=== PATIENT | male | born 1980 | race Hispanic/Latino ===

== ENCOUNTER 2019-02-07 22:30 | Observation (INO) | payer OTHER ==
[2019-02-07] MEDS ORDERED: Sodium Chloride 0.9% 1,000 ML IV STA (22:55)
[2019-02-07] MEDS ORDERED: Morphine 4 MG/ML VIAL IVP STA (22:55)
[2019-02-07] MEDS ORDERED: Morphine 4 MG/ML VIAL ONE (23:08)
--- NOTE | 2019-02-07 23:11 | ED PDOC ---
HPI: Abdomen Time Seen by Provider: 02/07/19 22:45 Chief Complaint (Nursing): Abdominal Pain Chief Complaint (Provider): Abdominal Pain History Per: Patient History/Exam Limitations: no limitations Onset/Duration Of Symptoms: Hrs (x4) Severity: Severe Location Of Pain/Discomfort: Other (upper abdomen) Associated Symptoms: Nausea. denies: Vomiting, Diarrhea, Constipation, Urinary Symptoms Additional Complaint(s): 38 years old male presents to ER for evaluation of severe upper abdominal pain associated with nausea that started around 7 pm. Patient reports pain has been worsening, waxing and waning since onset. He reports mild improvement when he had dinner but then pain came back. Patient states pain radiates to his back. He reports his last bowel movement was this morning normal with no blood or black stools. Patient admits he has been having intermittent abdominal pain for a long time, only in the last couple of months it became severe. He reports he saw a GI last week and is scheduled for endoscopy tomorrow. Patient denies vomiting, diarrhea and constipation. PMD: [facility] GI: Dr. Neptali Sparrow [facility] Past Medical History Reviewed: Historical Data, Nursing Documentation, Vital Signs Vital Signs: Last Vital Signs Temp 96 F L 02/07/19 22:33 Pulse 85 02/07/19 22:33 Resp 16 02/07/19 22:33 BP 122/80 02/07/19 22:33 Pulse Ox 98 02/07/19 22:33 - Medical History PMH: No Chronic Diseases - Surgical History Surgical History: No Surg Hx - Family History Family History: States: Diabetes - Social History Current smoker - smoking cessation education provided: No Alcohol: None Drugs: Denies - Home Medications Home Medications: Ambulatory Orders Medication Instructions Recorded No Known Home Med 02/08/19 - Allergies Allergies/Adverse Reactions: Allergies Allergy/AdvReac Type Severity Reaction Status Date / Time beet Allergy RASH Verified 02/07/19 22:39 Penicillins Allergy RASH Verified 02/07/19 22:35 lactose AdvReac DIARRHEA Verified 02/07/19 22:39 Review of Systems ROS Statement: Except As Marked, All Systems Reviewed And Found Negative Gastrointestinal: Positive for: Nausea, Abdominal Pain (upper). Negative for: Vomiting, Diarrhea, Constipation, Melena, Hematochezia Physical Exam - Reviewed Nursing Documentation Reviewed: Yes Vital Signs Reviewed: Yes - Physical Exam Appears: Positive for: Uncomfortable, In Acute Distress (painful) Head Exam: Positive for: ATRAUMATIC, NORMOCEPHALIC Skin: Positive for: Warm, Dry Eye Exam: Positive for: EOMI, PERRL ENT: Negative for: Pharyngeal Erythema, Tonsillar Exudate Neck: Positive for: Painless ROM, Supple Cardiovascular/Chest: Positive for: Regular Rate, Rhythm. Negative for: Murmur Respiratory: Positive for: Normal Breath Sounds. Negative for: Respiratory Distress Gastrointestinal/Abdominal: Positive for: Tenderness (to palpation to bilateral upper quadrants and epigastric area, more severe in RUQ), Distended (mild), Guarding (voluntary). Negative for: Other (McBurney's point) Back: Positive for: Normal Inspection. Negative for: Decreased ROM Extremity: Positive for: Normal ROM. Negative for: Deformity Lymphatic: Negative for: Adenopathy Neurological/Psych: Positive for: Awake, Alert, Oriented (x3) - Laboratory Results Result Diagrams: 02/07/19 23:10 02/07/19 23:10 - ECG O2 Sat by Pulse Oximetry: 98 (RA) Pulse Ox Interpretation: Normal Medical Decision Making Medical Decision Making: Time:2253 Initial Impression: Upper abdominal pain. Differential includes but not limited to gallbladder disease, pancreatitis, gastritis and PUD. Initial Plan: --CMP --Lactic acid --Lipase --CBC --Morphine 4 mg IVP --Pepcid 20 mg IVP --Zofran 4 mg IVP --Gallbladder & Hepatic US 12am Pt's pain improved slightly post morphine, still have some discomfort. Reviewed preliminary read by produce team member that indicates study was difficult due to bowel gas. Ordered CT abd/pelv with PO/IV contrast anticipating inconclusive ultrasound result. Endorsed to Dr Perdue pending CT, reassessment and final ER disposition. Scribe Attestation: Documented by Kaylene Munoz, acting as a scribe for Laura Hilario MD. Provider Scribe Attestation: All medical record entries made by the Scribe were at my direction and personally dictated by me. I have reviewed the chart and agree that the record accurately reflects my personal performance of the history, physical exam, medical decision making, and the department course for this patient. I have also personally directed, reviewed, and agree with the discharge instructions and disposition. Disposition - Clinical Impression Clinical Impression: Abdominal pain - Disposition Disposition: Transfer of Care Disposition Time: 00:00 Condition: FAIR
[2019-02-07 23:30] LABS: BASO # 0.1 K/uL (0.0-0.2); BASO % 0.8 % (0.0-2.0); EOS # 0.1 K/uL (0.0-0.7); EOS % 0.8 % (0.0-4.0); HEMOGLOBIN 17.1 g/dL (12.0-18.0); LYMPH # 2.1 K/uL (1.0-4.3); LYMPH % 18.4 % (20.0-40.0); MEAN CELL VOLUME 87.5 fl (80.0-94.0); MEAN CORPUSCULAR HEMOGLOBIN 30.3 pg (27.0-31.0); MEAN CORPUSCULAR HGB CONC 34.6 g/dL (33.0-37.0); MEAN PLATELET VOLUME 8.1 fl (7.2-11.7); MONO # 0.7 K/uL (0.0-0.8); MONO % 6.4 % (0.0-10.0); NEUT # 8.2 K/uL (1.8-7.0); NEUT % 73.6 % (50.0-75.0); NRBC % 0.1 % (0.0-0.0); RBC 5.64 Mil/uL (4.40-5.90); RED CELL DISTRIBUTION WIDTH 13.3 % (11.5-14.5); WHITE BLOOD COUNT 11.2 K/uL (4.8-10.8)
[2019-02-07 23:40] LABS: ALBUMIN 4.7 g/dL (3.5-5.0); BLOOD UREA NITROGEN 16 mg/dl (9-20); CALCIUM 9.9 mg/dL (8.4-10.2); GFR NON-AFRICAN AMERICAN > 60
[2019-02-07 23:41] LABS: ALB/GLOB RATIO 1.4 (1.0-2.1); ALT/SGPT 58 U/L (21-72); AST/SGOT 28 U/L (17-59); LIPASE 46 U/L (23-300)
[2019-02-08] MEDS ORDERED: Iohexol 240 (50 ml) PO STA (00:06)
--- NOTE | 2019-02-08 00:16 | ED PDOC ---
- Laboratory Results Result Diagrams: 02/07/19 23:10 02/07/19 23:10 Lab Results: Total Bilirubin 0.8 mg/dl (0.2-1.3) 02/07/19 23:10 AST 28 U/L (17-59) 02/07/19 23:10 ALT 58 U/L (21-72) 02/07/19 23:10 Alkaline Phosphatase 63 U/L (38-126) 02/07/19 23:10 Total Protein 8.1 G/DL (6.3-8.2) 02/07/19 23:10 Albumin 4.7 g/dL (3.5-5.0) 02/07/19 23:10 Globulin 3.4 gm/dL (2.2-3.9) 02/07/19 23:10 Albumin/Globulin Ratio 1.4 (1.0-2.1) 02/07/19 23:10 Lipase 46 U/L (23-300) 02/07/19 23:10 - ECG O2 Sat by Pulse Oximetry: 98 (RA) Pulse Ox Interpretation: Normal Medical Decision Making Medical Decision Making: Time: 0000 Patient transferred to [place] by Dr. Hilario, pending gallbladder US. 0122 Gallbladder and Hepatic US Findings: Unremarkable liver measuring 16.3 cm. Nondilated common bile duct measuring 4.1 mm. Normal gallbladder. Normal gallbladder wall thickness measuring 2.2 mm. Nondilated common bile duct measuring 4.9 mm. Nonvisualization of the pancreas secondary to gaseous bowel distention. Unremarkable IVC. Nonaneurysmal aorta. Unremarkable right kidney. Impression: Gaseous bowel distention. No evidence of cholelithiasis or acute cholecystitis. 0407 Abdomen/Pelvis CT Findings: COMMENTS: Partial small bowel obstruction. Transition zone in the left lower quadrant without bowel perforation or pneumatosis intestinalis. The liver is of uniform attenuation without mass or defect. There is no intra or extrahepatic biliary ductal dilatation. The spleen is normal. The gallbladder is within normal limits. The pancreas is of normal contour and attenuation characteristics. There is no evidence of adrenal mass. Both kidneys demonstrate prompt and equal nephrograms. The kidneys are normal in size, shape and configuration. There is no evidence of renal or ureteral mass. No renal or ureteral calculi are identified. There is no hydroureter or hydronephrosis. No evidence for appendicitis. There is no evidence of abdominal ascites or lymphadenopathy. There is no evidence of intrinsic or extrinsic bladder mass. There is no pelvic ascites or lymphadenopathy. Images of the lung bases show no evidence of pleural or parenchymal mass. There are no pleural effusions. The bony structures are free of lytic or blastic lesions. IMPRESSION: Partial small bowel obstruction. Transition zone in the left lower quadrant without bowel perforation or pneumatosis intestinalis. 0500 Patient reports he's feeling somewhat improved after toradol Consulted surgery resident Dr. Tien Jackson who came and evaluated patient 0600 NGT [address] by surgery Dr. Bird to consult on patient 0700 Dr. Buckner aware of patient Scribe Attestation: Documented by Kaylene Munoz, acting as a scribe for Miguel Angel Perdue MD. Provider Scribe Attestation: All medical record entries made by the Scribe were at my direction and perso kaelyn dictated by me. I have reviewed the chart and agree that the record accurately reflects my personal performance of the history, physical exam, medical decision making, and the department course for this patient. I have also personally directed, reviewed, and agree with the discharge instructions and disposition. Disposition Discussed With : Yonathan Buckner Doctor Will See Patient In The: Hospital Counseled Patient/Family Regarding: Studies Performed, Diagnosis - Clinical Impression Clinical Impression: Abdominal pain - POA Present On Arrival: None - Disposition Disposition: Hospitalized as Observation Patient Disposition Time: 07:00 Condition: FAIR
[2019-02-08] MEDS ORDERED: Iohexol 240 (50 ml) ONE (00:45)
[2019-02-08] MEDS ORDERED: Sodium Chloride 0.9% 50 ML IV ONE (02:46)
[2019-02-08] MEDS ORDERED: Iohexol 300 100 ML IJ ONE (02:46)
--- NOTE | 2019-02-08 04:57 | CP.PCM.CON ---
<Tien Shore - Last Filed: 02/08/19 10:33> History of Present Illness - History of Present Illness History of Present Illness: General Surgery Consult Note for Dr. Bird Reason for consult: SBO 38 M who denies any significant PMH presents to [facility] for complaint of abdominal pain. Patient seen and evaluated in the ED. Patient states that pain began yesterday afternoon when he was flying back to [place]. 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 He reports that the pain came on suddenly and had gotten progressively worse. He states pain is severe and describes it as constant cramping in epigastrium. He reports nausea but denies vomiting. He also denies any fever/chills. He states that his last BM was yesterday morning and it was normal. He was passing flatus as well but then stopped around when pain began. Patient had an endoscopy scheduled for today with his Penal Officer at [facility]. He also shared that he has been having "stomach issue" for the last two years. He intially saw GI in [place] two years ago for pain and diarrhea. At that time, he was given PPI and pain resolved. It came back recently and has been following up at [facility]. Admits to recent travel due to his job. Denies recent illness, sick contacts, cp, SOB, diarrhea, urinary symptoms, hematochezia, melena, incontinence. PMH: denies PSH: denies ALL: PCN Review of Systems - Review of Systems All systems: reviewed and no additional remarkable complaints except (as per HPI) Past Patient History - Past Social History Smoking Status: Former Smoker - RENAL Hx Kidney Stones: Yes - PSYCHIATRIC Hx Substance Use: No - SURGICAL HISTORY Hx Surgeries: No Meds Allergies/Adverse Reactions: Allergies Allergy/AdvReac Type Severity Reaction Status Date / Time beet Allergy RASH Verified 02/07/19 22:39 Penicillins Allergy RASH Verified 02/07/19 22:35 lactose AdvReac DIARRHEA Verified 02/07/19 22:39 Physical Exam - Constitutional Appears: Non-toxic, No Acute Distress - Head Exam Head Exam: ATRAUMATIC, NORMOCEPHALIC - Eye Exam Eye Exam: EOMI, Normal appearance Pupil Exam: PERRL - ENT Exam ENT Exam: Mucous Membranes Moist - Neck Exam Neck exam: Positive for: Full Rom - Respiratory Exam Respiratory Exam: NORMAL BREATHING PATTERN - Cardiovascular Exam Cardiovascular Exam: REGULAR RHYTHM - GI/Abdominal Exam GI & Abdominal Exam: Distended (mild), Hypoactive Bowel Sounds, Soft, Tenderness (epigastrium). absent: Firm, Guarding, Hernia, Rebound, Rigid - Rectal Exam Rectal Exam: Deferred (adamantly refused) - Extremities Exam Extremities exam: Negative for: calf tenderness, normal capillary refill, pedal pulses present - Back Exam Back exam: absent: CVA tenderness (L), CVA tenderness (R) - Neurological Exam Neurological exam: Alert, CN II-XII Intact, Oriented x3 - Psychiatric Exam Psychiatric exam: Normal Affect, Normal Mood - Skin Skin Exam: Dry, Intact, Normal Color, Warm Results - Vital Signs Recent Vital Signs: Last Vital Signs Temp 96 F L 02/07/19 22:33 Pulse 85 02/07/19 22:33 Resp 16 02/07/19 22:33 BP 122/80 02/07/19 22:33 Pulse Ox 98 02/08/19 04:11 - Labs Result Diagrams: 02/07/19 23:10 02/07/19 23:10 Labs: Laboratory Results - last 24 hr 02/07/19 02/07/19 02/07/19 23:10 23:10 23:10 WBC 11.2 H RBC 5.64 Hgb 17.1 Hct 49.3 MCV 87.5 MCH 30.3 MCHC 34.6 RDW 13.3 Plt Count 323 MPV 8.1 Neut % (Auto) 73.6 Lymph % (Auto) 18.4 L [place] % (Auto) 6.4 Eos % (Auto) 0.8 Baso % (Auto) 0.8 Neut # (Auto) 8.2 H Lymph # (Auto) 2.1 [place] # (Auto) 0.7 Eos # (Auto) 0.1 Baso # (Auto) 0.1 Sodium 137 Potassium 4.0 Chloride 99 Carbon Dioxide 27 Anion Gap 15 BUN 16 Creatinine 0.8 Est GFR ( Amer) > 60 Est GFR (Non-Af Amer) > 60 Random Glucose 104 Lactic Acid 0.9 Calcium 9.9 Total Bilirubin 0.8 AST 28 ALT 58 Alkaline Phosphatase 63 Total Protein 8.1 Albumin 4.7 Globulin 3.4 Albumin/Globulin Ratio 1.4 Lipase 46 Assessment & Plan - Assessment and Plan (Free Text) Assessment: 38 M who presents with abdominal pain found to have SBO on CT abdomen/pelvis Plan: -NPO -NGT low intermittent suction -May have sip/chips, hard candy, and gum -Strict I's & O's -Pain control -Anti-emetics PRN -Protonix -Monitor for bowel function -Serial abd exams -Discussed with Dr. Bird/Dr. John Shore PGY2 - Date & Time Date: 02/08/19 Time: 04:33 <Sterling Lopez - Last Filed: 02/08/19 12:27> Meds - Medications Medications: Current Medications Lactated Ringer's (Lactated Ringer's) 1,000 mls @ 150 mls/hr IV .Q6H40M [facility] Last Admin: 02/08/19 06:32 Dose: 150 mls/hr Ketorolac Tromethamine (Toradol) 30 mg IVP Q6 PRN PRN Reason: Pain, moderate (4-7) Last Admin: 02/08/19 11:34 Dose: 30 mg Ondansetron HCl (Zofran Inj) 4 mg IVP Q6 PRN PRN Reason: Nausea/Vomiting Pantoprazole Sodium (Protonix Inj) 40 mg IVP DAILY [facility] Last Admin: 02/08/19 06:37 Dose: 40 mg Results - Vital Signs Recent Vital Signs: Last Vital Signs Temp 97.2 F L 02/08/19 10:58 Pulse 70 02/08/19 10:58 Resp 18 02/08/19 10:58 BP 114/72 02/08/19 10:58 Pulse Ox 95 02/08/19 10:58 - Labs Result Diagrams: 02/07/19 23:10 02/07/19 23:10 Labs: Laboratory Results - last 24 hr 02/07/19 02/07/19 02/07/19 23:10 23:10 23:10 WBC 11.2 H RBC 5.64 Hgb 17.1 Hct 49.3 MCV 87.5 MCH 30.3 MCHC 34.6 RDW 13.3 Plt Count 323 MPV 8.1 Neut % (Auto) 73.6 Lymph % (Auto) 18.4 L [place] % (Auto) 6.4 Eos % (Auto) 0.8 Baso % (Auto) 0.8 Neut # (Auto) 8.2 H Lymph # (Auto) 2.1 [place] # (Auto) 0.7 Eos # (Auto) 0.1 Baso # (Auto) 0.1 Sodium 137 Potassium 4.0 Chloride 99 Carbon Dioxide 27 Anion Gap 15 BUN 16 Creatinine 0.8 Est GFR ( Amer) > 60 Est GFR (Non-Af Amer) > 60 Random Glucose 104 Lactic Acid 0.9 Calcium 9.9 Total Bilirubin 0.8 AST 28 ALT 58 Alkaline Phosphatase 63 Total Protein 8.1 Albumin 4.7 Globulin 3.4 Albumin/Globulin Ratio 1.4 Lipase 46 Urine Color Urine Clarity Urine pH Ur Specific [place] Urine Protein Urine Glucose (UA) Urine Ketones Urine Blood Urine Nitrate Urine Bilirubin Urine Urobilinogen Ur Leukocyte Esterase Urine RBC (Auto) Urine Microscopic WBC 02/08/19 05:00 WBC RBC Hgb Hct MCV MCH MCHC RDW Plt Count MPV Neut % (Auto) Lymph % (Auto) [place] % (Auto) Eos % (Auto) Baso % (Auto) Neut # (Auto) Lymph # (Auto) [place] # (Auto) Eos # (Auto) Baso # (Auto) Sodium Potassium Chloride Carbon Dioxide Anion Gap BUN Creatinine Est GFR ( Amer) Est GFR (Non-Af Amer) Random Glucose Lactic Acid Calcium Total Bilirubin AST ALT Alkaline Phosphatase Total Protein Albumin Globulin Albumin/Globulin Ratio Lipase Urine Color Yellow Urine Clarity Clear Urine pH 6.0 Ur Specific [place] > 1.020 Urine Protein Negative Urine Glucose (UA) Neg Urine Ketones Negative Urine Blood Negative Urine Nitrate Negative Urine Bilirubin Negative Urine Urobilinogen 2.0 Ur Leukocyte Esterase Neg Urine RBC (Auto) 4 H Urine Microscopic WBC 1 Assessment & Plan - Assessment and Plan (Free Text) Plan: 38yo M presents with one day history of worsening abominal pain with nausea or vomiting. Pt report chronic abdominal discomfort for which he was scheduled to have EGD on 02/08. Pt seen in ED states pain has improved and has started to pass flatus. gen: awake, alert, NAD, HEENT: NC/AT, EOMI, PERRLA, NGT in place no acute respiratory distress abd: soft, tenderness to mid abdomen on moderate palpation, no peritoneal signs, no hernias or mass, no previous scars rectal exam: pt refused 38yo M with abdominal pain, CT showing SBO with collapsed small bowel -pts abdomen is clinically benign -recommend NGT -IVF -serial abdominal exams -will repeat AXR to follow transit of contrast -no acute intervention but will continue to monitor clinically
[2019-02-08 06:28] LABS: URINE BILIRUBIN NEGATIVE (NEGATIVE); URINE BLOOD NEGATIVE (NEGATIVE); URINE CLARITY CLEAR (Clear); URINE COLOR YELLOW (YELLOW); URINE GLUCOSE (UA) NEG (NEGATIVE); URINE LEUKOCYTE ESTERASE NEG Leu/uL (Negative); URINE PROTEIN NEGATIVE (NEGATIVE)
[2019-02-08] MEDS: Lactated Ringer's 1,000 ML IV SCH ×2 (06:32→22:39)
--- NOTE | 2019-02-08 10:24 | CT ---
Date of service: 02/08/2019 PROCEDURE: CT Abdomen and Pelvis with contrast HISTORY: severe abdominal pain COMPARISON: None. TECHNIQUE: Contrast dose: Radiation dose: Total exam DLP = 832.6 mGy-cm. This CT exam was performed using one or more of the following dose reduction techniques: Automated exposure control, adjustment of the mA and/or kV according to patient size, and/or use of iterative reconstruction technique. FINDINGS: LOWER THORAX: Unremarkable. LIVER: Unremarkable. No gross lesion or ductal dilatation. GALLBLADDER AND BILE DUCTS: Unremarkable. PANCREAS: Unremarkable. No gross lesion or ductal dilatation. SPLEEN: Unremarkable. ADRENALS: Unremarkable. No mass. KIDNEYS AND URETERS: Unremarkable. No hydronephrosis. No solid mass. VASCULATURE: Unremarkable. No aortic aneurysm. No aortic atherosclerotic calcification or mural plaque present. BOWEL: The stomach is distended with retained food and oral contrast material and a bit of gas. Proximal small bowel is distended up to 3.7 cm greatest transverse dimension there is no ascites or mesenteric edema associated. Distal small bowel is completely collapsed. There appears to be a transition point at the medial left flank where small bowel transition from distended to partially collapsed diameter. Fecalization of distended small bowel loop approaching this transition point is identified this may reflect internal hernia but the etiology of obstruction is otherwise unclear. Moderate amount retained fecal material scattered throughout the large bowel with distal large bowel collapse evident. APPENDIX: Normal appendix. PERITONEUM: Unremarkable. No free fluid. No free air. LYMPH NODES: Unremarkable. No enlarged lymph nodes. BLADDER: Unremarkable. REPRODUCTIVE: Unremarkable. BONES: No acute fracture. OTHER FINDINGS: None. IMPRESSION: 1. Relatively high-grade mid to distal small bowel obstruction with transition point appearing to be at the medial left flank, possibly from internal hernia. Clinically correlate further. No ascites or mesenteric edema associated. Distal small bowel is completely collapsed. Stomach is distended with retained oral contrast material and food. 2. Otherwise unremarkable abdomen pelvis CT exam. Preliminary report provided by [employer], 02/08/2019, 4:07 a.m..
--- NOTE | 2019-02-08 12:57 | US ---
Date of service: 02/07/2019 HISTORY: Severe upper abdominal pain COMPARISON: None. TECHNIQUE: Grayscale imaging was performed. FINDINGS: LIVER: Measures 16.3 cm in length. Normal echogenicity of the liver parenchyma. No mass. No intrahepatic bile duct dilatation. GALLBLADDER: There are no gallstones, wall thickening or pericholecystic fluid. The sonographic [place]'s sign is negative. COMMON BILE DUCT: Measures 4.9 mm. No stones. No dilatation. PANCREAS: Unremarkable as visualized. No mass. No ductal dilatation. RIGHT KIDNEY: Measures 9.9 cm in length. Normal echogenicity. No calculus, mass, or hydronephrosis. AORTA: No aneurysmal dilatation. IVC: Unremarkable. OTHER FINDINGS: None . IMPRESSION: Limited examination due to excessive bowel gas. No cholelithiasis or biliary dilatation.
--- NOTE | 2019-02-08 17:45 | CP.PCM.CON ---
History of Present Illness - History of Present Illness History of Present Illness: 38 yo male admitted with abdominal piiain and distention. Found in ER on CT to have an SBO. NG placed and he is now better. On and off symptoms for about a year and a half. Had been scheduled for upper endoscopy. Review of Systems - Constitutional Constitutional: absent: Chills - EENT Eyes: absent: Change in Vision Ears: absent: Ear Discharge Nose/Mouth/Throat: absent: Nasal Congestion - Cardiovascular Cardiovascular: absent: Chest Pain - Respiratory Respiratory: absent: Cough - Gastrointestinal Gastrointestinal: As Per HPI - Genitourinary Genitourinary: absent: Change in Urinary Stream Past Patient History - Past Social History Smoking Status: Never Smoked - RENAL Hx Kidney Stones: Yes - MUSCULOSKELETAL/RHEUMATOLOGICAL Hx Falls: No - PSYCHIATRIC Hx Substance Use: No - SURGICAL HISTORY Hx Surgeries: No Meds Allergies/Adverse Reactions: Allergies Allergy/AdvReac Type Severity Reaction Status Date / Time beet Allergy RASH Verified 02/07/19 22:39 Penicillins Allergy RASH Verified 02/07/19 22:35 lactose AdvReac DIARRHEA Verified 02/07/19 22:39 - Medications Medications: Current Medications Lactated Ringer's (Lactated Ringer's) 1,000 mls @ 150 mls/hr IV .Q6H40M [facility] Last Admin: 02/08/19 06:32 Dose: 150 mls/hr Ketorolac Tromethamine (Toradol) 30 mg IVP Q6 PRN PRN Reason: Pain, moderate (4-7) Last Admin: 02/08/19 11:34 Dose: 30 mg Ondansetron HCl (Zofran Inj) 4 mg IVP Q6 PRN PRN Reason: Nausea/Vomiting Pantoprazole Sodium (Protonix Inj) 40 mg IVP DAILY [facility] Last Admin: 02/08/19 06:37 Dose: 40 mg Physical Exam - Head Exam Head Exam: ATRAUMATIC - Eye Exam Eye Exam: Normal appearance - ENT Exam ENT Exam: Mucous Membranes Moist - Neck Exam Neck exam: Positive for: Normal Inspection - Respiratory Exam Respiratory Exam: Clear to Auscultation Bilateral - Cardiovascular Exam Cardiovascular Exam: REGULAR RHYTHM - GI/Abdominal Exam GI & Abdominal Exam: Normal Bowel Sounds, Soft. absent: Tenderness Results - Vital Signs Recent Vital Signs: Last Vital Signs Temp 97.2 F L 02/08/19 10:58 Pulse 70 02/08/19 10:58 Resp 18 02/08/19 10:58 BP 114/72 02/08/19 10:58 Pulse Ox 95 02/08/19 10:58 - Labs Result Diagrams: 02/07/19 23:10 02/07/19 23:10 Labs: Laboratory Results - last 24 hr 02/07/19 02/07/19 02/07/19 23:10 23:10 23:10 WBC 11.2 H RBC 5.64 Hgb 17.1 Hct 49.3 MCV 87.5 MCH 30.3 MCHC 34.6 RDW 13.3 Plt Count 323 MPV 8.1 Neut % (Auto) 73.6 Lymph % (Auto) 18.4 L [place] % (Auto) 6.4 Eos % (Auto) 0.8 Baso % (Auto) 0.8 Neut # (Auto) 8.2 H Lymph # (Auto) 2.1 [place] # (Auto) 0.7 Eos # (Auto) 0.1 Baso # (Auto) 0.1 Sodium 137 Potassium 4.0 Chloride 99 Carbon Dioxide 27 Anion Gap 15 BUN 16 Creatinine 0.8 Est GFR ( Amer) > 60 Est GFR (Non-Af Amer) > 60 Random Glucose 104 Lactic Acid 0.9 Calcium 9.9 Total Bilirubin 0.8 AST 28 ALT 58 Alkaline Phosphatase 63 Total Protein 8.1 Albumin 4.7 Globulin 3.4 Albumin/Globulin Ratio 1.4 Lipase 46 Urine Color Urine Clarity Urine pH Ur Specific [place] Urine Protein Urine Glucose (UA) Urine Ketones Urine Blood Urine Nitrate Urine Bilirubin Urine Urobilinogen Ur Leukocyte Esterase Urine RBC (Auto) Urine Microscopic WBC 02/08/19 05:00 WBC RBC Hgb Hct MCV MCH MCHC RDW Plt Count MPV Neut % (Auto) Lymph % (Auto) [place] % (Auto) Eos % (Auto) Baso % (Auto) Neut # (Auto) Lymph # (Auto) [place] # (Auto) Eos # (Auto) Baso # (Auto) Sodium Potassium Chloride Carbon Dioxide Anion Gap BUN Creatinine Est GFR ( Amer) Est GFR (Non-Af Amer) Random Glucose Lactic Acid Calcium Total Bilirubin AST ALT Alkaline Phosphatase Total Protein Albumin Globulin Albumin/Globulin Ratio Lipase Urine Color Yellow Urine Clarity Clear Urine pH 6.0 Ur Specific [place] > 1.020 Urine Protein Negative Urine Glucose (UA) Neg Urine Ketones Negative Urine Blood Negative Urine Nitrate Negative Urine Bilirubin Negative Urine Urobilinogen 2.0 Ur Leukocyte Esterase Neg Urine RBC (Auto) 4 H Urine Microscopic WBC 1 - Imaging and Cardiology CT scan - abdomen Status: Report reviewed by me Assessment & Plan (1) Abdominal pain Assessment and Plan: SBO mid small bowel on CT. Clinically better though patient has been having on and off symptoms for a year w/o definitive diagnosis. No family history or CT evidence of Crohns. 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 Recommend exploratory laparoscopy to establish a definitive diagnosis. Status: Acute
--- NOTE | 2019-02-08 19:00 | CP.PCM.HP ---
History of Present Illness - History of Present Illness History of Present Illness: CC: Abdominal Pain History of Present Illness" A 38 years old male presents to ER for evaluation of severe upper abdominal pain associated with nausea that started around 7 pm. Patient reports pain has been worsening, waxing and waning since onset. He reports mild improvement when he had dinner but then pain came back. Patient states pain radiates to his back. He reports his last bowel movement was yesterday morning normal with no blood or black stools. Patient admits he has been having intermittent abdominal pain for a long time, only in the last couple of months it became severe. He reports he saw a GI last week and is scheduled for endoscopy tomorrow. Patient denies vomiting, diarrhea and constipation. S/P NG tube insertion with less bloating, and passing flatus. Present on Admission - Present on Admission Any Indicators Present on Admission: No Review of Systems - Review of Systems All systems: reviewed and no additional remarkable complaints except Review of Systems: as per HPI Past Patient History - Past Medical History & Family History Past Medical History?: No Past Family History: Reviewed and not pertinent - Past Social History Smoking Status: Never Smoked Alcohol: Social Drugs: Denies - RENAL Hx Kidney Stones: Yes - MUSCULOSKELETAL/RHEUMATOLOGICAL Hx Falls: No - PSYCHIATRIC Hx Substance Use: No - SURGICAL HISTORY Hx Surgeries: No Meds Allergies/Adverse Reactions: Allergies Allergy/AdvReac Type Severity Reaction Status Date / Time beet Allergy RASH Verified 02/07/19 22:39 Penicillins Allergy RASH Verified 02/07/19 22:35 lactose AdvReac DIARRHEA Verified 02/07/19 22:39 Physical Exam - Constitutional Appears: Well, No Acute Distress - Head Exam Head Exam: ATRAUMATIC, NORMAL INSPECTION, NORMOCEPHALIC - Eye Exam Eye Exam: EOMI, Normal appearance, PERRL Pupil Exam: NORMAL ACCOMODATION, PERRL - ENT Exam ENT Exam: Mucous Membranes Moist, Normal Exam - Neck Exam Neck exam: Positive for: Normal Inspection - Respiratory Exam Respiratory Exam: Clear to Auscultation Bilateral, NORMAL BREATHING PATTERN - Cardiovascular Exam Cardiovascular Exam: REGULAR RHYTHM, +S1, +S2 - GI/Abdominal Exam GI & Abdominal Exam: Normal Bowel Sounds, Soft, Tenderness (on deep palpitation) - Extremities Exam Extremities exam: Positive for: normal inspection - Back Exam Back exam: NORMAL INSPECTION - Neurological Exam Neurological exam: Alert, CN II-XII Intact, Normal Gait, Oriented x3, Reflexes Normal - Psychiatric Exam Psychiatric exam: Normal Affect, Normal Mood - Skin Skin Exam: Dry, Intact, Normal Color, Warm Results - Vital Signs Recent Vital Signs: Last Vital Signs Temp 97.2 F L 02/08/19 10:58 Pulse 70 02/08/19 10:58 Resp 18 02/08/19 10:58 BP 114/72 02/08/19 10:58 Pulse Ox 95 02/08/19 10:58 - Labs Result Diagrams: 02/07/19 23:10 02/07/19 23:10 Labs: Laboratory Results - last 24 hr 02/07/19 02/07/19 02/07/19 23:10 23:10 23:10 WBC 11.2 H RBC 5.64 Hgb 17.1 Hct 49.3 MCV 87.5 MCH 30.3 MCHC 34.6 RDW 13.3 Plt Count 323 MPV 8.1 Neut % (Auto) 73.6 Lymph % (Auto) 18.4 L [place] % (Auto) 6.4 Eos % (Auto) 0.8 Baso % (Auto) 0.8 Neut # (Auto) 8.2 H Lymph # (Auto) 2.1 [place] # (Auto) 0.7 Eos # (Auto) 0.1 Baso # (Auto) 0.1 Sodium 137 Potassium 4.0 Chloride 99 Carbon Dioxide 27 Anion Gap 15 BUN 16 Creatinine 0.8 Est GFR ( Amer) > 60 Est GFR (Non-Af Amer) > 60 Random Glucose 104 Lactic Acid 0.9 Calcium 9.9 Total Bilirubin 0.8 AST 28 ALT 58 Alkaline Phosphatase 63 Total Protein 8.1 Albumin 4.7 Globulin 3.4 Albumin/Globulin Ratio 1.4 Lipase 46 Urine Color Urine Clarity Urine pH Ur Specific [facility] Urine Protein Urine Glucose (UA) Urine Ketones Urine Blood Urine Nitrate Urine Bilirubin Urine Urobilinogen Ur Leukocyte Esterase Urine RBC (Auto) Urine Microscopic WBC 02/08/19 05:00 WBC RBC Hgb Hct MCV MCH MCHC RDW Plt Count MPV Neut % (Auto) Lymph % (Auto) [place] % (Auto) Eos % (Auto) Baso % (Auto) Neut # (Auto) Lymph # (Auto) [place] # (Auto) Eos # (Auto) Baso # (Auto) Sodium Potassium Chloride Carbon Dioxide Anion Gap BUN Creatinine Est GFR ( Amer) Est GFR (Non-Af Amer) Random Glucose Lactic Acid Calcium Total Bilirubin AST ALT Alkaline Phosphatase Total Protein Albumin Globulin Albumin/Globulin Ratio Lipase Urine Color Yellow Urine Clarity Clear Urine pH 6.0 Ur Specific [facility] > 1.020 Urine Protein Negative Urine Glucose (UA) Neg Urine Ketones Negative Urine Blood Negative Urine Nitrate Negative Urine Bilirubin Negative Urine Urobilinogen 2.0 Ur Leukocyte Esterase Neg Urine RBC (Auto) 4 H Urine Microscopic WBC 1 - Imaging and Cardiology CT abdomen/Plevis: Status: Report reviewed by me Additional comment: Date of service: 02/08/2019 PROCEDURE: CT Abdomen and Pelvis with contrast HISTORY: severe abdominal pain COMPARISON: None. TECHNIQUE: Contrast dose: Radiation dose: Total exam DLP = 832.6 mGy-cm. This CT exam was performed using one or more of the following dose reduction techniques: Automated exposure control, adjustment of the mA and/or kV according to patient size, and/or use of iterative reconstruction technique. FINDINGS: LOWER THORAX: Unremarkable. LIVER: Unremarkable. No gross lesion or ductal dilatation. GALLBLADDER AND BILE DUCTS: Unremarkable. PANCREAS: Unremarkable. No gross lesion or ductal dilatation. SPLEEN: Unremarkable. ADRENALS: Unremarkable. No mass. KIDNEYS AND URETERS: Unremarkable. No hydronephrosis. No solid mass. VASCULATURE: Unremarkable. No aortic aneurysm. No aortic atherosclerotic calcification or mural plaque present. BOWEL: The stomach is distended with retained food and oral contrast material and a bit of gas. Proximal small bowel is distended up to 3.7 cm greatest transverse dimension there is no ascites or mesenteric edema associated. Distal small bowel is completely collapsed. There appears to be a transition point at the medial left flank where small bowel transition from distended to partially collapsed diameter. Fecalization of distended small bowel loop approaching this transition point is identified this may reflect internal hernia but the etiology of obstruction is otherwise unclear. Moderate amount retained fecal material scattered throughout the large bowel with distal large bowel collapse evident. APPENDIX: Normal appendix. PERITONEUM: Unremarkable. No free fluid. No free air. LYMPH NODES: Unremarkable. No enlarged lymph nodes. BLADDER: Unremarkable. REPRODUCTIVE: Unremarkable. BONES: No acute fracture. OTHER FINDINGS: None. IMPRESSION: 1. Relatively high-grade mid to distal small bowel obstruction with transition point appearing to be at the medial left flank, possibly from internal hernia. Clinically correlate further. No ascites or mesenteric edema associated. Distal small bowel is completely collapsed. Stomach is distended with retained oral contrast material and food. 2. Otherwise unremarkable abdomen pelvis CT exam. Assessment & Plan (1) Small bowel obstruction Status: Acute Priority: High (2) Abdominal pain Status: Acute Priority: Medium - Assessment and Plan (Free Text) Plan: IVF Pain Medication PRN S/p NG tube Surgery and GI Consulted Monitor Electrolytes Pantoprazole
[2019-02-09] MEDS: Lactated Ringer's 1,000 ML IV SCH (04:36)
[2019-02-09 08:19] VITALS: O2SAT 97
--- NOTE | 2019-02-09 08:24 | CP.PCM.PN ---
<Angus Heard - Last Filed: 02/09/19 08:26> Subjective - Date & Time of Evaluation Date of Evaluation: 02/09/19 Time of Evaluation: 07:10 - Subjective Subjective: Patient seen and examined s/p NGT removal yesterday afternoon. No events over night. Tolerating liquid diet. Had one small BM this AM. Denies any abdominal pain or symptoms. Objective - Vital Signs/Intake and Output Vital Signs (last 24 hours): Temp Pulse Resp BP Pulse Ox 97.4 F L 66 20 115/72 97 02/09/19 08:18 02/09/19 08:18 02/09/19 08:18 02/09/19 08:18 02/09/19 08:18 Intake and Output: 02/09/19 02/09/19 06:59 18:59 Intake Total 2370 Balance 2370 - Medications Medications: Current Medications Lactated Ringer's (Lactated Ringer's) 1,000 mls @ 150 mls/hr IV .Q6H40M [facility] Last Admin: 02/09/19 04:36 Dose: Not Given Ketorolac Tromethamine (Toradol) 30 mg IVP Q6 PRN PRN Reason: Pain, moderate (4-7) Last Admin: 02/08/19 18:50 Dose: 30 mg Ondansetron HCl (Zofran Inj) 4 mg IVP Q6 PRN PRN Reason: Nausea/Vomiting Pantoprazole Sodium (Protonix Inj) 40 mg IVP DAILY [facility] Last Admin: 02/08/19 06:37 Dose: 40 mg - Labs Labs: 02/07/19 23:10 02/07/19 23:10 - Constitutional Appears: No Acute Distress - Head Exam Head Exam: NORMOCEPHALIC - Eye Exam Eye Exam: Normal appearance - ENT Exam ENT Exam: Mucous Membranes Moist - Respiratory Exam Respiratory Exam: NORMAL BREATHING PATTERN - Cardiovascular Exam Cardiovascular Exam: +S1, +S2 - GI/Abdominal Exam GI & Abdominal Exam: Soft. 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 John Truong PGY3 <Sterling Lopez - Last Filed: 02/09/19 18:28> Objective - Vital Signs/Intake and Output Vital Signs (last 24 hours): Temp Pulse Resp BP Pulse Ox 97.9 F 63 18 126/80 97 02/09/19 17:00 02/09/19 17:00 02/09/19 17:00 02/09/19 17:00 02/09/19 17:00 Intake and Output: 02/09/19 02/09/19 06:59 18:59 Intake Total 2370 Balance 2370 - Medications Medications: Current Medications Lactated Ringer's (Lactated Ringer's) 1,000 mls @ 150 mls/hr IV .Q6H40M [facility] Last Admin: 02/09/19 04:36 Dose: Not Given Ketorolac Tromethamine (Toradol) 30 mg IVP Q6 PRN PRN Reason: Pain, moderate (4-7) Last Admin: 02/08/19 18:50 Dose: 30 mg Ondansetron HCl (Zofran Inj) 4 mg IVP Q6 PRN PRN Reason: Nausea/Vomiting Pantoprazole Sodium (Protonix Inj) 40 mg IVP DAILY [facility] Last Admin: 02/09/19 10:13 Dose: 40 mg - Labs Labs: 02/07/19 23:10 02/07/19 23:10 Assessment and Plan - Assessment and Plan (Free Text) Plan: pt seen at bedside, abdominal pain and other symptoms have resolved. Pt is passing flatus and having BMs. gen: awake, alert, NAD abd: soft, NT, NT, no peritoneal signs 38 yo M with resolved abdominal pain, SBO on CT -pt no previous surgical history but reports chronic abdominal discomfort -d/w regarding a diagnostic laparoscopy in order to evaulate cause of possible SBO seen on CT. Given the fact that symptoms have resolved and is passing flatus, pt at this point would like to avoid surgery and proceed to a regular diet. -pt advise the importance of following up with his GI for the scheduled EGD he was previously scheduled for -pt also advise if symptoms return to return to ED for evaluation -advance to regular diet, if patient tolerates, pt stable for dc from surgery perspective
--- NOTE | 2019-02-09 13:28 | RAD ---
Date of service: 02/08/2019 HISTORY: SBO, evaluation of contrast COMPARISON: Correlation made with prior CT scan abdomen pelvis 02/08/2019 TECHNIQUE: 1 view obtained. FINDINGS: In situ distal tip NGT overlying left upper abdomen BOWEL: No evidence of acute mechanical bowel obstruction opaque contrast material opacifies the ascending and proximal transverse colon with slightly less opacification of the remaining colon. Large amount of stool is present suggesting mild fecal retention/constipation... BONES: Normal. OTHER FINDINGS: None. IMPRESSION: No evidence of acute mechanical bowel obstruction.
[2019-02-09 16:01] VITALS: BP 126/80; PULSE 63; RESP 18; TEMP 97.9
--- NOTE | 2019-02-12 11:00 | CP.PCM.DIS ---
Provider - Provider Date of Admission: 02/08/19 07:06 Attending physician: Yonathan Buckner MD Primary care physician: Salazar Ward MD Consults: 02/08/19 12:27 Surgical [General Surgery Consult] Routine Comment: Consulting Provider: Sterling Lopez Consulting Physician: Sterling Lopez Reason for Consult: dx: SBO 02/08/19 12:59 Gastroenterology Consult Routine Comment: Consulting Provider: Justino Chun Consulting Physician: Justino Chun Reason for Consult: Abdominal pain Time Spent in preparation of Discharge (in minutes): 25 Diagnosis - Discharge Diagnosis (1) Abdominal pain Status: Acute Priority: Medium (2) Small bowel obstruction Status: Acute Priority: High Hospital Course - Lab Results Lab Results: Most Recent Lab Values WBC 11.2 K/uL (4.8-10.8) H 02/07/19 23:10 RBC 5.64 Mil/uL (4.40-5.90) 02/07/19 23:10 Hgb 17.1 g/dL (12.0-18.0) 02/07/19 23:10 Hct 49.3 % (35.0-51.0) 02/07/19 23:10 MCV 87.5 fl (80.0-94.0) 02/07/19 23:10 MCH 30.3 pg (27.0-31.0) 02/07/19 23:10 MCHC 34.6 g/dL (33.0-37.0) 02/07/19 23:10 RDW 13.3 % (11.5-14.5) 02/07/19 23:10 Plt Count 323 K/uL (130-400) 02/07/19 23:10 MPV 8.1 fl (7.2-11.7) 02/07/19 23:10 Neut % (Auto) 73.6 % (50.0-75.0) 02/07/19 23:10 Lymph % (Auto) 18.4 % (20.0-40.0) L 02/07/19 23:10 [place] % (Auto) 6.4 % (0.0-10.0) 02/07/19 23:10 Eos % (Auto) 0.8 % (0.0-4.0) 02/07/19 23:10 Baso % (Auto) 0.8 % (0.0-2.0) 02/07/19 23:10 Neut # (Auto) 8.2 K/uL (1.8-7.0) H 02/07/19 23:10 Lymph # (Auto) 2.1 K/uL (1.0-4.3) 02/07/19 23:10 [place] # (Auto) 0.7 K/uL (0.0-0.8) 02/07/19 23:10 Eos # (Auto) 0.1 K/uL (0.0-0.7) 02/07/19 23:10 Baso # (Auto) 0.1 K/uL (0.0-0.2) 02/07/19 23:10 Sodium 137 mmol/l (132-148) 02/07/19 23:10 Potassium 4.0 MMOL/L (3.6-5.0) 02/07/19 23:10 Chloride 99 mmol/L (98-107) 02/07/19 23:10 Carbon Dioxide 27 mmol/L (22-30) 02/07/19 23:10 Anion Gap 15 (10-20) 02/07/19 23:10 BUN 16 mg/dl (9-20) 02/07/19 23:10 Creatinine 0.8 mg/dl (0.8-1.5) 02/07/19 23:10 Est GFR ( Amer) > 60 02/07/19 23:10 Est GFR (Non-Af Amer) > 60 02/07/19 23:10 Random Glucose 104 mg/dL (75-110) 02/07/19 23:10 Lactic Acid 0.9 mmol/L (0.7-2.1) 02/07/19 23:10 Calcium 9.9 mg/dL (8.4-10.2) 02/07/19 23:10 Total Bilirubin 0.8 mg/dl (0.2-1.3) 02/07/19 23:10 AST 28 U/L (17-59) 02/07/19 23:10 ALT 58 U/L (21-72) 02/07/19 23:10 Alkaline Phosphatase 63 U/L (38-126) 02/07/19 23:10 Total Protein 8.1 G/DL (6.3-8.2) 02/07/19 23:10 Albumin 4.7 g/dL (3.5-5.0) 02/07/19 23:10 Globulin 3.4 gm/dL (2.2-3.9) 02/07/19 23:10 Albumin/Globulin Ratio 1.4 (1.0-2.1) 02/07/19 23:10 Lipase 46 U/L (23-300) 02/07/19 23:10 Urine Color Yellow (YELLOW) 02/08/19 05:00 Urine Clarity Clear (Clear) 02/08/19 05:00 Urine pH 6.0 (5.0-8.0) 02/08/19 05:00 Ur Specific [place] > 1.020 (1.003-1.030) 02/08/19 05:00 Urine Protein Negative mg/dL (NEGATIVE) 02/08/19 05:00 Urine Glucose (UA) Neg mg/dL (NEGATIVE) 02/08/19 05:00 Urine Ketones Negative mg/dL (NEGATIVE) 02/08/19 05:00 Urine Blood Negative (NEGATIVE) 02/08/19 05:00 Urine Nitrate Negative (NEGATIVE) 02/08/19 05:00 Urine Bilirubin Negative (NEGATIVE) 02/08/19 05:00 Urine Urobilinogen 2.0 mg/dL (0.2-1.0) 02/08/19 05:00 Ur Leukocyte Esterase Neg [place]/uL (Negative) 02/08/19 05:00 Urine RBC (Auto) 4 /hpf (0-3) H 02/08/19 05:00 Urine Microscopic WBC 1 /hpf (0-5) 02/08/19 05:00 Discharge Exam - Head Exam Head Exam: NORMOCEPHALIC Discharge Plan - Follow Up Plan Condition: FAIR Disposition: HOME/ ROUTINE Instructions: Small Bowel Obstruction, How to Wash Your Hands Properly Referrals: Salazar Ward MD [Primary Care Provider] -
== END 2019-02-09 19:54 | disposition home or self-care (01) ==
LOC: H.ER 22:30 → H.ERHOLD 02-08 07:06 → H.MEDSURG1 02-08 10:14
PROVIDERS: ADMIT Internal Medicine; ATTEND Internal Medicine
DX: K56.600 Partial intestinal obstruction, unspecified as to cause (principal); Z87.442 Personal history of urinary calculi; Z87.891 Personal history of nicotine dependence; Z91.011 Allergy to milk products; Z88.0 Allergy status to penicillin; Z91.018 Allergy to other foods
CPT/HCPCS: 74018; 74177; 76705; 80053; 81003; 83605; 83690; 85025; 96361; 96374; 96375; 96376; 99285; C9113; G0378; J1885; J2270; J2405; J7030; J7120; Q9966; Q9967